=== PATIENT | female | born 1940 | race Caucasian/White ===

== ENCOUNTER 2016-11-23 18:04 | Emergency (ER) | payer OTHER ==
[2016-11-23 18:12] VITALS: BP 187/100; PULSE 77; RESP 16; TEMP 98.2; O2SAT 93
[2016-11-23] MEDS ORDERED: COLCHICINE 0.6 MG CAP/TAB PO ONE (18:52)
--- NOTE | 2016-11-23 18:53 | EDPHY ---
H & P Stated Complaint: left foot pain 5 days Time Seen by Provider: 11/23/16 18:30 HPI/ROS: CHIEF COMPLAINT: Foot pain HISTORY OF PRESENT ILLNESS: The patient is a 76-year-old female with no significant past medical history who comes to the emergency department complaining of pain at the MTP joint of her great toe left foot. Her symptoms began about a week ago. She does not remember any specific injury but thinks she may have tripped down the stairs. It is been slightly swollen and erythematous and warm to the touch. No lacerations or abrasions or procedures. She had something similar 2 months ago on her other toe. It resolved the with ibuprofen. She states that she has been eating increased vegetables over the last few months because her had a heart attack. REVIEW OF SYSTEMS: Constitutional: denies: chills, fever, recent illness, recent injury EENTM: denies: blurred vision, double vision, nose congestion Respiratory: denies: cough, shortness of breath Cardiac: denies: chest pain, irregular heart rate, lightheadedness, palpitations Gastrointestinal/Abdominal: denies: abdominal pain, diarrhea, nausea, vomiting, blood streaked stools Genitourinary: denies: dysuria, frequency, hematuria, pain Musculoskeletal: See HPI Skin: denies: lesions, rash, jaundice, bruising Neurological: denies: headache, numbness, paresthesia, tingling, dizziness, weakness Hematologic/Lymphatic: denies: blood clots, easy bleeding, easy bruising Immunologic/allergic: denies: HIV/AIDS, transplant EXAM: GENERAL: Well-appearing, well-nourished and in no acute distress. HEAD: Atraumatic, normocephalic. EYES: Pupils equal round and reactive to light, extraocular movements intact, sclera anicteric, conjunctiva are normal. ENT: TMs normal, nares patent, oropharynx clear without exudates. Moist mucous membranes. NECK: Normal range of motion, supple without lymphadenopathy or JVD. LUNGS: Breath sounds clear to auscultation bilaterally and equal. No wheezes rales or rhonchi. HEART: Regular rate and rhythm without murmurs, rubs or gallops. ABDOMEN: Soft, nontender, normoactive bowel sounds. No guarding, no rebound. No masses appreciated. BACK: No CVA tenderness, no spinal tenderness, step-offs or deformities EXTREMITIES: Left great toe with swelling and slight warmth and minimal erythema at MTP joint. Mild yellow discoloration with palpation. NEUROLOGICAL: Cranial nerves II through XII grossly intact. Normal speech, normal gait. 5/5 strength, normal movement in all extremities, normal sensation PSYCH: Normal mood, normal affect. SKIN: Warm, dry, normal turgor, no visible rashes or lesions. Source: Patient Exam Limitations: No limitations - Medical/Surgical History Hx Asthma: No Hx Chronic Respiratory Disease: No Hx Diabetes: No Hx Cardiac Disease: No Hx Renal Disease: No Hx Cirrhosis: No Hx Alcoholism: No Hx HIV/AIDS: No Hx Splenectomy or Spleen Trauma: No Other PMH: HTN/Hyst/GB - Family History Significant Family History: No pertinent family hx - Social History Smoking Status: Never smoked Alcohol Use: Sober Drug Use: None Constitutional: Initial Vital Signs Temperature (C) 36.8 C 11/23/16 18:06 Heart Rate 77 11/23/16 18:06 Respiratory Rate 16 11/23/16 18:06 Blood Pressure 187/100 H 11/23/16 18:06 O2 Sat (%) 93 11/23/16 18:06 O2 Delivery Mode Room Air Allergies/Adverse Reactions: Sulfa (Sulfonamide Antibiotics) Allergy (Verified 11/23/16 18:13) Home Medications: Medication Instructions Recorded Propranolol Sr [Inderal LA 80mg 80 mg PO HS 04/26/12 (RX)] Simvastatin 40 mg PO HS 04/26/12 VALSARTAN/HYDROCHLOROTHIAZIDE 1 each PO HS 04/26/12 [Diovan Hct 160-12.5 Mg Tab] LORazepam [Ativan 0.5 mg (RX)] 0.5 mg PO DAILY PRN 04/27/12 Multivitamins [Tab-A-Uday] 1 each PO HS 04/27/12 [place]-3 Fatty Acids [Fish Oil 1000 2,000 mg PO HS 04/27/12 mg (OTC)] Zolpidem Tartrate [Ambien 10 mg] 10 mg PO HS PRN 04/27/12 Colchicine 0.6 mg PO BID #30 capsule 11/23/16 Ibuprofen 600 mg PO TID PRN #30 tablet 11/23/16 Medical Decision Making - Diagnostics Imaging Results: Imaging Impressions Foot X-Ray 11/23/16 18:22 Impression: No evidence for acute osseous abnormality. Chronic findings as above. X-ray: Foot x-ray was obtained. I viewed the images myself on the PACS system. My interpretation of the images is: negative for acute disease . The radiologist interpretation is pending. ED Course/Re-evaluation: I suspect the patient has gout. I will treat her with colchicine. She has had her kidney function tested in the past and it is always had a GFR greater than 10. She will up with her regular physician in the next few days for re- evaluation. She is already taking ibuprofen at home and I encouraged her to continue this. She did have x-rays done which are unremarkable for acute injury. She is relieved by this. Dietary counseling was given. Differential Diagnosis: Partial list of the Differential diagnosis considered include but were not limited to; gout, fracture, septic joint and although unlikely based on the history and physical exam, I also considered foreign body, cellulitis, sepsis. I discussed these differential diagnoses and the plan with the patient as well as the usual and expected course. The patient understands that the diagnosis is provisional and that in medicine we are not always correct and that further workup is often warranted. Usual and customary warnings were given. All of the patient's questions were answered. The patient was instructed to return to the emergency department should the symptoms at all worsen or return, otherwise to followup with the physician as we discussed. - Data Points Medications Given: Discontinued Medications Colchicine (Colchicine) 0.6 mg PO EDNOW ONE Stop: 11/23/16 18:53 Last Admin: 11/23/16 19:10 Dose: Not Given Departure - Departure Disposition: Home, Routine, Self-Care Clinical Impression: Gout attack Qualifiers: Gout site: toe Gout etiology: unspecified cause Laterality: left Qualified Code (s): M10.9 - Gout, unspecified Condition: Good Instructions: Low Purine Diet (ED), Gout (ED) Referrals: NONE *PRIMARY CARE P,. [Primary Care Provider] - As per Instructions Cecy Ro DO [Doctor of Osteopathy] - As per Instructions Prescriptions: Colchicine 0.6 mg PO BID #30 capsule Ibuprofen 600 mg PO TID PRN #30 tablet PRN Reason: Pain, Moderate
== END 2016-11-23 19:03 | disposition home or self-care (01) ==
LOC: CED 18:04
DX: M10.9 Gout, unspecified (principal); I10 Essential (primary) hypertension
CPT/HCPCS: 73630-PO

== ENCOUNTER 2017-07-14 17:52 | Emergency (ER) | payer OTHER ==
[2017-07-14 18:03] VITALS: BP 195/101
--- NOTE | 2017-07-14 18:19 | EDPHY ---
H & P Time Seen by Provider: 07/14/17 17:57 HPI/ROS: 77-year-old female with sudden onset of severe dysuria this afternoon. She states she has a prior history of urinary tract infections generally Once every few years. She denies fevers chills nausea vomiting or back pain. Review of systems As per HPI General no fever no chills no weakness HEENT no eye pain no eye discharge. No eye redness, no sore throat Respiratory no cough, no shortness of breath Cardiac no chest pain, no peripheral edema GI no abdominal pain, no diarrhea, no constipation, no nausea, no vomiting no flank pain, no hematuria, positive dysuria Musculoskeletal no myalgias, no joint pain Heme no easy bruising, no easy bleeding Endo no polyuria, no polydipsia Skin no rashes, no pruritus Neuro no syncope, no dizziness, no headaches Psych is no suicidal ideation, no homicidal ideation Past Medical/Surgical History: Hypertension, hyperlipidemia, frequent urinary tract infection Social History: Denies alcohol or drug use Smoking Status: Never smoked Physical Exam: 77-year-old Female alert and oriented in no acute distress nontoxic appearance, afebrile Atraumatic normocephalic Neck supple Lungs clear to auscultation bilaterally Heart regular rate and rhythm Abdomen normoactive bowel sounds soft mild suprapubic tenderness no guarding no rebound Back no CVA tenderness Extremities no cyanosis clubbing or edema Skin no rash Constitutional: Initial Vital Signs Temperature (C) 36.3 C 07/14/17 18:01 Heart Rate 72 07/14/17 18:01 Respiratory Rate 18 07/14/17 18:01 Blood Pressure 195/101 H 07/14/17 18:01 O2 Sat (%) 96 07/14/17 18:01 O2 Delivery Mode Room Air Allergies/Adverse Reactions: Sulfa (Sulfonamide Antibiotics) Allergy (Verified 07/14/17 17:57) Home Medications: Medication Instructions Recorded Propranolol Sr [Inderal LA 80mg 80 mg PO HS 04/26/12 (RX)] Simvastatin 40 mg PO HS 04/26/12 VALSARTAN/HYDROCHLOROTHIAZIDE 1 each PO HS 04/26/12 [Diovan Hct 160-12.5 Mg Tab] LORazepam [Ativan 0.5 mg (RX)] 0.5 mg PO DAILY PRN 04/27/12 Multivitamins [Tab-A-Uday] 1 each PO HS 04/27/12 [place]-3 Fatty Acids [Fish Oil 1000 2,000 mg PO HS 04/27/12 mg (OTC)] Zolpidem Tartrate [Ambien 10 mg] 10 mg PO HS PRN 04/27/12 Colchicine 0.6 mg PO BID #30 capsule 11/23/16 Ibuprofen 600 mg PO TID PRN #30 tablet 11/23/16 Cephalexin 500 mg PO BID #14 tablet 07/14/17 Medical Decision Making ED Course/Re-evaluation: Patient seen and evaluated for dysuria. Urinalysis consistent with UTI Patient given cephalexin 500 mg in phenazopyridine 200 mg Imp UTI Plan Cephalexin Phenazopyridine Follow-up PCP Return if worsens Differential Diagnosis: Differential diagnosis considered but not limited to: Urinary tract infection, pyelonephritis - Data Points Laboratory Results: 07/14/17 17:55 Urine Color PALE YELLOW Urine Appearance HAZY Urine pH 5.5 (5.0-7.5) Ur Specific [place] <= 1.005 (1.002-1.030) Urine Protein NEGATIVE (NEGATIVE) Urine Ketones NEGATIVE (NEGATIVE) Urine Blood 3+ H (NEGATIVE) Urine Nitrate NEGATIVE (NEGATIVE) Urine Bilirubin NEGATIVE (NEGATIVE) Urine Urobilinogen 0.2 EU EU (0.2-1.0) Ur Leukocyte Esterase 3+ H (NEGATIVE) Urine RBC >182 /hpf H /hpf (0-3) Urine WBC >182 /hpf H /hpf (0-3) Ur Epithelial Cells TRACE /lpf /lpf (NONE-1+) Urine Bacteria TRACE /hpf H /hpf (NONE SEEN) Urine Mucus 1+ /lpf /lpf (NONE-1+) Urine Glucose NEGATIVE (NEGATIVE) Medications Given: Discontinued Medications Cephalexin (Keflex 500 Mg Prepack#4) 1 btl TAKEHOME EDNOW ONE PRN Reason: Protocol Stop: 07/14/17 18:21 Last Admin: 07/14/17 18:30 Dose: 1 btl Phenazopyridine HCl (Pyridium) 200 mg PO EDNOW ONE Stop: 07/14/17 18:32 Last Admin: 07/14/17 18:31 Dose: 200 mg Departure - Departure Disposition: Home, Routine, Self-Care Clinical Impression: Urinary tract infection Condition: Good Instructions: Urinary Tract Infection in Women (ED) Referrals: James,Marci Jennifer, MD [Primary Care Provider] - As per Instructions Prescriptions: Cephalexin 500 mg PO BID #14 tablet
[2017-07-14] MEDS ORDERED: CEPHALEXIN 500MG PREPACK#4 BTL TAKEHOME ONE (18:20)
[2017-07-14] MEDS ORDERED: PHENAZOPYRIDINE HCL 200 MG TAB ONE (18:27)
[2017-07-14] MEDS ORDERED: PHENAZOPYRIDINE HCL 200 MG TAB PO ONE (18:31)
== END 2017-07-14 18:32 | disposition home or self-care (01) ==
LOC: CED 17:52
DX: N39.0 Urinary tract infection, site not specified (principal); I10 Essential (primary) hypertension; B96.89 Other specified bacterial agents as the cause of diseases classified elsewhere
CPT/HCPCS: 81003-PO; 81015-PO